=== PATIENT | female | born 1955 | race Caucasian/White ===

== ENCOUNTER → 2020-12-30 | Outpatient (CLI) | payer MEDICARE ==
[~2020-12-30] MED LIST: B Complex #11 EACH PO; Cinnamon500 MG PO; KRILL OIL 1,001 EACH PO; MONT10T PO
== END | disposition home or self-care (01) ==
LOC: LAB 06:00 → LAB SHORT 06:00 → LAB FUT 12-26 17:45
DX: R19.7 Diarrhea, unspecified (principal)
CPT/HCPCS: 87015; 87045; 87046; 87177; 87205; 87209; 87328; 87329; 87493; 87899

== ENCOUNTER → 2023-02-28 | Outpatient (CLI) | payer MEDICARE ==
[2023-02-28 16:02] LABS: Alanine Aminotransfer (ALT/SGP 33 U/L (12-78); Albumin, Blood 3.4 g/dL (3.4-5.0); Albumin/Globulin Ratio 0.9 (0.8-1.8); Alk Phos 57 U/L (50-136); Anion Gap 6 mmol/L (6-16); Aspartate Aminotrans (AST/SGOT 21 U/L (12-37); Bilirubin, Total 0.7 mg/dL (0.1-1.0); Blood Urea Nitrogen 9 mg/dL (8-24); Bun/Creatinine Ratio 11.4 (12.0-20.0); CHOL/HDL RATIO 2.3; CO2, Blood 28 mmol/L (21-32); Calcium, Blood 9.1 mg/dL (8.5-10.1); Chloride, Blood 102 mmol/L (98-108); Cholesterol 213 mg/dL (50-200); Creatinine, Blood 0.79 mg/dL (0.40-1.00); Globulin, Blood 3.8 g/dL (2.2-4.0); Glomerular Filtration Rate 82 (60-); Glucose, Blood 86 mg/dL (70-99); HDL Cholesterol 91 mg/dL (>39); LDL/HDL RATIO 1.2; Low Density Lipoprotein Chol 106 mg/dL (0-110); Potassium, Blood 3.6 mmol/L (3.5-5.5); Sodium, Blood 136 mmol/L (136-145); Total Protein, Blood 7.2 g/dL (6.4-8.2); Triglycerides 78 mg/dL (30-160); Very Low Density Lipoprot Chol 15 mg/dL (6-32)
== END ==
LOC: LAB SHORT 08:40 → LAB 08:40
PROVIDERS: Hospitalist
DX: E78.5 Hyperlipidemia, unspecified (principal); L65.9 Nonscarring hair loss, unspecified
CPT/HCPCS: 80053; 80061; 84443

== ENCOUNTER 2025-11-10 12:42 | Day surgery (SDC) | payer MEDICARE ==
[~2025-11-10] VITALS: Ht 157.5 cm; Wt 47.7 kg
[~2025-11-10 12:42] MED LIST changes: +Balanced Salt Epinephrine Irrigation Solution 500 mL IR SCH; +Moxifloxacin HCL 0.5 MG/0.1 ML 0.4MLSYR RIGHTEYE SCH; +Ondansetron 4 MG SoluTab MM PRN; +PHENYLEPHRINE\\TROPICAMIDE\\TETRACAINE OPHTHALMIC DILATING SOLN RIGHTEYE PRN; +Povidone-Iodine 450 DROP/30 ML Solution ONE; +Povidone-Iodine 450 DROP/30 ML Solution RIGHTEYE SCH; +Tetracaine HCl/Pf 0.5% Opth Soln 4 ml ONE; +Triamcinolone Inj Susp 40 MG / ML 1ML Vial INJ SCH; +Triamcinolone Inj Susp 40 MG / ML 1ML Vial ONE
[2025-11-10] MEDS ORDERED: BUPR100ER (12:58)
[2025-11-10] MEDS ORDERED: TRAZ50 (12:58)
--- NOTE | 2025-11-10 13:00 | NUR ---
11/10/25 1300 Eleanor Irizarry PT STATES 0/10 ANXIETY LEVEL IN PREOP CALL LIGHT IN HAND PT IS ON CONTINUOUS PULSE OX MONITORING
--- NOTE | 2025-11-10 13:25 | NUR ---
11/10/25 1325 Lisa Veliz 1323 BP:136/88 HR:68 O2:99% RESP:16
[2025-11-10 13:44] VITALS: BP 115/82
== END 2025-11-10 14:03 | disposition home or self-care (01) ==
LOC: ORSCSDS 12:42
PROVIDERS: Ophthalmology
PROC: 08RJ3JZ Replacement of Right Lens with Synthetic Substitute, Percutaneous Approach (ICD-10-PCS; principal; 2025-11-10 14:00)
DX: H25.811 Combined forms of age-related cataract, right eye (principal)
CPT/HCPCS: A9270; J3301; V2632